=== PATIENT | female | born 1995 | race Caucasian/White ===

== ENCOUNTER 2023-02-20 11:45 | Outpatient (CLI) | payer OTHER, SELFPAY ==
[2023-02-20 12:46] LABS: Basophils Percent Auto 0.7 % (0.2-1.2); Eosinophils Absolute Auto 0.1 K/mm3 (0-0.3); Eosinophils Percent Auto 2.1 % (0-4.4); Hematocrit 42.8 % (37.0-47.0); Hemoglobin 13.4 g/dL (12.0-15.0); Immature Granulocyte Absolute 0.01 K/mm3 (0.00-0.031); Immature Granulocyte Percent A 0.2 % (0-0.5); Lymphocytes Absolute Auto 1.97 K/mm3 (0.9-3.2); Lymphocytes Percent Auto 45.5 % (18.3-44.2); Mean Corpuscular HGB Conc 31.3 g/dl (32-36); Mean Corpuscular Hemoglobin 28.3 pg (26-34); Mean Corpuscular Volume 90.5 fl (80-100); Mean Platelet Volume 10.6 fl (7.4-10.4); Monocytes Absolute Auto 0.4 K/mm3 (0.1-0.6); Neutrophils Absolute Auto 1.8 K/mm3 (1.3-6.7); Neutrophils Percent Auto 42.5 % (45.5-73.1); Platelet Count Result 283 k/mm3 (150-375); Red Blood Count 4.73 M/mm3 (4.2-5.4); Red Cell Distribution Width 13.9 % (11.5-14.5); White Blood Count 4.3 K/mm3 (4.5-10.0)
[2023-02-20 12:56] LABS: Alanine Aminotransferase 17 U/L (6-35); Albumin Level 4.7 g/dL (3.5-5.1); Alkaline Phosphatase 67 U/L (38-126); Anion Gap 10 mmol/L (8-16); Aspartate Amino Transferase 25 U/L (14-36); Bilirubin,Total 0.6 mg/dL (0.2-1.3); Blood Urea Nitrogen 15 mg/dL (7-17); Calcium 9.3 mg/dL (8.4-10.2); Carbon Dioxide 27 mmol/L (22-30); Chloride 102 mmol/L (98-107); Cholesterol 184 mg/dL (0-200); Estimated Glomerular Filt Rate > 60; Glucose 88 mg/dL (65-110); HDL Direct 64 mg/dL; Potassium 3.8 mmol/L (3.4-5.0); Sodium 139 mmol/L (137-145); Triglycerides 71 mg/dL (<150)
[2023-02-20 13:07] LABS: LDL Cholesterol Direct 82 mg/dL
[2023-02-20 13:20] LABS: Creatinine Urine 209.3 mg/dL
[2023-02-20 13:25] LABS: MALB Creatinine Ratio 14.8 mg/g (0-30); Microalbumin Urine Random 30.9 mg/L (0-16.7)
[2023-02-20 13:25] LABS: Free T4 Free Thyroxine 1.18 ng/mL (0.78-2.19); Total Triiodothyronine (T3) 1.18 NG/ML (0.97-1.69); Vitamin D 25 Hydroxy 34.7 ng/mL
[2023-02-20 14:00] LABS: Folic Acid 9.5 ng/mL (2.76->20)
[2023-02-20 16:04] LABS: Iron 66 ug/dL (37-170)
[2023-02-20 16:48] LABS: Ferritin 8.15 ng/mL (6.24-137)
[2023-02-23 12:47] LABS: Vitamin B1 13 nmol/L (8-30)
[2023-02-24 12:21] LABS: Vitamin B6 6.2 ng/mL (2.1-21.7)
[2023-02-26 09:11] LABS: Alpha-Tocopherol 7.9 mg/L (5.7-19.9)
[2023-02-27 13:22] LABS: Vitamin B2 5.2 nmol/L (6.2-39.0)
== END 2023-02-20 11:46 | disposition home or self-care (01) ==
LOC: ANHLAB 11:50
PROVIDERS: PCP Nurse Practitioner Adult Health; Visit Provider Nurse Practitioner Adult Health
DX: R53.1 Weakness (principal); R53.83 Other fatigue; E55.9 Vitamin D deficiency, unspecified; I10 Essential (primary) hypertension
CPT/HCPCS: 36415; 80053; 80061; 82043; 82306; 82607; 82728; 82746; 83540; 84207; 84252; 84425; 84439; 84443; 84446; 84480; 85025